=== PATIENT | female | born 1950 | race Caucasian/White ===

== ENCOUNTER → 2018-06-03 | Outpatient (CLI) | payer OTHER ==
[~2018-06-03] MED LIST: DIATRIZOATE MEGL/DIATRIZOA SOD 30 ML BTL PO ONE; IOPAMIDOL 370 MG/ML 200 ML INFUS..BTL INJ ONE; SODIUM CHLORIDE 0.9% 50ML 50 ML ONE
[2018-06-03 14:48] LABS: BLOOD UREA NITROGEN 14 mg/dL (7-26); BUN/CREATININE RATIO 16 (6-25); CREATININE, SERUM 0.85 mg/dL (0.57-1.11); EST GLOMERULAR FILTRATION RATE > 60 ML/MIN (60-)
--- NOTE | 2018-06-03 15:57 | Diagnostic Imaging Report ---
PROCEDURE: CT scan of the chest and abdomen WITH intravenous contrast, using standard protocol. TECHNIQUE: The chest was scanned utilizing a multidetector helical scanner from the lung apex through the level of the iliac crests after the IV administration of 100 cc of Isovue 370 and 200 cc of Gastroview. Coronal and sagittal multiplanar reformations were obtained. DLP: 491.11 mGy-cm COMPARISON: None. INDICATIONS: Esophageal pain FINDINGS: Lines/tubes: Right chest wall port with tip in the SVC. Lungs and Airways: Moderate centrilobular emphysematous changes. Multiple pulmonary nodules, the larger nodules include (on series 4): * Right upper lobe 0.7 cm nodule (image 31) * Right upper lobe 1.2 cm nodule (image 49) * Right upper lobe 0.8 cm nodule (image 69) * Right lower lobe 1 cm nodule (image 80) * Left upper lobe 1.1 cm nodule (image 33) No consolidations. Small amount of debris in the right main stem bronchus. Mild bronchial wall thickening. Pleura: The pleural spaces are clear. Heart and mediastinum: The thyroid gland is normal. No significant mediastinal, hilar or axillary lymphadenopathy is seen. The heart and pericardium are within normal limits. Main pulmonary artery measures 3.3 cm in diameter and is enlarged which can be seen with pulmonary hypertension. Coronary artery and aortic calcifications. Small hiatal hernia. Esophagus is filled with enteric contrast which may represent incomplete passage of contrast into the stomach or reflux. Hepatobiliary: Normal liver contour. Diffuse hypoattenuation of the liver relative to the spleen is suggestive steatosis. No masses. Cholecystectomy. Mild intrahepatic and extrahepatic biliary ductal dilatation likely related to post cholecystectomy reservoir effect. Spleen: No splenomegaly. No masses. Pancreas: No masses or ductal dilatation. Adrenal glands: No adrenal nodules Kidneys: No masses, hydronephrosis, or stones. Left renal 1.5 cm cyst in the inferior pole. Additional tiny low attenuating lesions are too small to characterize but probably cysts. GI tract: No bowel wall thickening or evidence of obstruction. Large amount of stool within the visualized portions of the transverse and ascending colon. Left lower quadrant spigelian hernia versus ostomy which is barely visualized. Lymph nodes: No lymphadenopathy. Vessels: Portal, splenic, and visualized portions of the superior mesenteric veins are patent. Moderate atherosclerotic changes. Retroperitoneum/peritoneum: No free air or free fluid. Bones: Degenerative changes of the thoracic and visualized portions of the lumbar spine. No acute or aggressive osseous lesions. Soft tissues: Incompletely visualized midline laparotomy scar. IMPRESSION: 1. Small hiatal hernia with enteric contrast within the esophagus which may reflect reflux or incomplete passage of contrast into the stomach. Otherwise, no CT findings to explain esophageal pain. 2. Emphysematous changes with small amount of debris in the airways and mild bronchial wall thickening suggestive of mild bronchitis. 3. Multiple pulmonary nodules measuring up to 1.2 cm which may be infectious, inflammatory, or metastatic. Consider followup according to Fleischner Society [address] in 3-6 months. Dictated by: Laz Campo M.D. on 06/03/2018 at 16:01 Electronically approved by: Laz Campo M.D. on 06/03/2018 at 16:01
--- NOTE | 2018-06-03 15:59 | Diagnostic Imaging Report ---
PROCEDURE: CT CHEST AND ABDOMEN WITH CONTRAST TECHNIQUE: The chest and abdomen were scanned utilizing a multidetector helical scanner of the chest to the iliac crests after the IV administration of 100 cc of Isovue 370 and the oral administration of 200 cc of Gastroview. Coronal and sagittal multiplanar reformations were obtained. DLP: 491.11 mGy-cm COMPARISON: None. INDICATIONS: ESOPHAGEAL PAIN, COLASPES PER PATIENT FINDINGS: Please see same day chest CT for full report. IMPRESSION: Please see same day chest CT for full report. Dictated by: Laz Campo M.D. on 06/03/2018 at 16:03 Electronically approved by: Laz Campo M.D. on 06/03/2018 at 16:03
== END ==
LOC: CT 13:39
PROVIDERS: ATTEND Internal Medicine Gastroenterology
DX: R07.9 Chest pain, unspecified (principal); R10.9 Unspecified abdominal pain; R13.10 Dysphagia, unspecified; K44.9 Diaphragmatic hernia without obstruction or gangrene; B37.81 Candidal esophagitis; E66.3 Overweight; Z85.9 Personal history of malignant neoplasm, unspecified; Z71.3 Dietary counseling and surveillance
CPT/HCPCS: 36415; 71260; 74160; 76937; 82565; 84520; Q9967

== ENCOUNTER → 2018-06-22 | Day surgery (SDC) | payer OTHER ==
[2018-06-21 17:57] LABS: BASOPHILS % 0.3 % (0.0-1.0); EOSINOPHILS # (AUTO) 0.2 (0.0-0.4); EOSINOPHILS % 3.5 % (0.0-6.0); HEMATOCRIT 41.2 % (34.2-44.1); HEMOGLOBIN 13.5 g/dL (12.0-16.0); LYMPHOCYTES # (AUTO) 0.7 (1.0-3.2); LYMPHOCYTES % 10.4 % (18.0-39.1); MEAN CORPUSCULAR HEMOGLOBIN 32.1 pg (28-32); MEAN CORPUSCULAR HGB CONC 32.8 g/dL (31-35); MEAN CORPUSCULAR VOLUME 97.9 fL (81-99); MONOCYTES # (AUTO) 0.9 (0.2-0.8); MONOCYTES % 14.3 % (4.4-11.3); NEUTROPHILS # (AUTO) 4.4 (2.1-6.9); NEUTROPHILS % 70.9 % (38.7-80.0); PLATELET COUNT 149 x10e3/uL (140-360); RED BLOOD COUNT 4.21 x10e6/uL (3.6-5.1)
[~2018-06-22] MED LIST changes: +CYMBALTA60 MG PO; -DIATRIZOATE MEGL/DIATRIZOA SOD 30 ML BTL PO ONE; +GABAPENTIN400 MG PO; -IOPAMIDOL 370 MG/ML 200 ML INFUS..BTL INJ ONE; +LIDOCAINE HCL 2% LOCAL INJ 5 ML SDV VIAL INJ ONE; +MS CONTIN15 MG PO; +OXYCODONE HCL20 M1 PO; +PANTOPRAZOLE SO40 MG PO; +PROPOFOL IV EMULSION 10 MG/ML 50 ML VIAL ONE; -SODIUM CHLORIDE 0.9% 50ML 50 ML ONE; +SYMBICORT 16010.2 GM INH; +VENTOLIN HFA18 GM INH; +[UNRECOGNIZED DRUG - OTHER] INH
== END | disposition home or self-care (01) ==
LOC: OR 05:28
PROVIDERS: ATTEND Internal Medicine Gastroenterology
DX: K21.0 Gastro-esophageal reflux disease with esophagitis (principal); K44.9 Diaphragmatic hernia without obstruction or gangrene; R13.10 Dysphagia, unspecified; E66.3 Overweight; Z68.28 Body mass index [BMI] 28.0-28.9, adult; F17.210 Nicotine dependence, cigarettes, uncomplicated; K22.2 Esophageal obstruction; Z01.810 Encounter for preprocedural cardiovascular examination; Z01.812 Encounter for preprocedural laboratory examination
CPT/HCPCS: 36415; 43239; 43249; 85025; 88305; 93005; J2001; 43450

== ENCOUNTER 2019-05-12 05:29 | Inpatient (IN) | payer MEDICARE ==
[2019-05-10 13:15] LABS: BASOPHILS % 0.5 % (0.0-1.0); EOSINOPHILS # (AUTO) 0.2 (0.0-0.4); EOSINOPHILS % 2.8 % (0.0-6.0); HEMATOCRIT 42.8 % (34.2-44.1); HEMOGLOBIN 13.4 g/dL (12.0-16.0); LYMPHOCYTES # (AUTO) 0.6 (1.0-3.2); MEAN CORPUSCULAR HEMOGLOBIN 31.2 pg (28-32); MEAN CORPUSCULAR HGB CONC 31.3 g/dL (31-35); MEAN CORPUSCULAR VOLUME 99.8 fL (81-99); MONOCYTES # (AUTO) 0.5 (0.2-0.8); MONOCYTES % 8.2 % (4.4-11.3); NEUTROPHILS # (AUTO) 4.4 (2.1-6.9); NEUTROPHILS % 78.1 % (38.7-80.0); PLATELET COUNT 221 x10e3/uL (140-360); RED BLOOD COUNT 4.29 x10e6/uL (3.6-5.1); RED CELL DISTRIBUTION WIDTH 14.7 % (11.7-14.4)
[2019-05-10 13:34] LABS: ANION GAP 9.6 mmol/L (8-16); BLOOD UREA NITROGEN 13 mg/dL (7-26); BUN/CREATININE RATIO 16 (6-25); CALCIUM 9.4 mg/dL (8.4-10.2); CARBON DIOXIDE 31 mmol/L (22-29); CHLORIDE 101 mmol/L (98-107); CREATININE, SERUM 0.81 mg/dL (0.57-1.11); EST GLOMERULAR FILTRATION RATE > 60 ML/MIN (60-); GLUCOSE 87 mg/dL (74-118); POTASSIUM 4.6 mmol/L (3.5-5.1); SODIUM 137 mmol/L (136-145)
--- NOTE | 2019-05-10 14:06 | Diagnostic Imaging Report ---
EXAM: CHEST 2 VIEWS, PA and lateral DATE: 05/10/2019 Time stamp on exam: 1:06 PM INDICATION: COPD, preoperative for parastomal hernia repair COMPARISON: None FINDINGS: LINES/TUBES: Right chest wall subclavian approach Port-A-Cath with tip overlying SVC. LUNGS: No consolidations. Prominent central pulmonary vascularity. PLEURA: No effusions or pneumothorax. HEART AND MEDIASTINUM: Normal size and contour. BONES AND SOFT TISSUES: No acute findings. Calcified lymph node in the right axilla. IMPRESSION: Prominent central pulmonary vascularity. Signed by: Dr. Geronimo Ozuna DO on 05/10/2019 2:03 PM
[2019-05-12] VITALS (7 sets, daily range): BP systolic 112–128; BP diastolic 54–67
[~2019-05-12] VITALS: Ht 172.7 cm; Wt 93.0 kg
[~2019-05-12 05:29] MED LIST changes: +IBUPROFEN200 MG PO; -LIDOCAINE HCL 2% LOCAL INJ 5 ML SDV VIAL INJ ONE; -PROPOFOL IV EMULSION 10 MG/ML 50 ML VIAL ONE
--- OUTSIDE RECORDS SUMMARY | 2019-05-12 05:32 | XMS REPORT | Clinical Summary ---
Author Author [facility] [employer] [facility] Address Unknown Phone Unavailable Care Team Providers Care Asphalt Roller Operator Name Role Phone Christi Shirley MD PCP Allergies Comments Active Allergy Reactions Severity Noted Date "lidocaine cream only -burning her skin". Pt reports having lidocaine for iv injection for iv access and "no problems" Lidocaine Other (See 03/12/2017 Comments) Medications End Date Status Medication Sig Dispensed Refills Start Date Active budesonide-formoterol Inhale 2 0 (SYMBICORT) 160-4.5 puffs 2 (two) mcg/actuation inhaler times a day. Active ipratropium-albuterol Inhale 2 0 (COMBIVENT RESPIMAT) puffs 2 (two) 20-100 mcg/actuation mist times a day. inhaler Active oxyCODone (ROXICODONE) 15 Take 15 mg by 0 MG immediate release mouth every 4 tablet (four) hours as needed for moderate pain. Active FLUoxetine (PROzac) 60 MG Take 60 mg by 0 tablet mouth nightly. Active pantoprazole (PROTONIX) Take 40 mg by 0 40 MG EC tablet mouth 2 (two) times a day. Active albuterol (ACCUNEB) 2.5 Take 2.5 mg 0 mg /3 mL (0.083 %) by nebulizer solution nebulization every 8 (eight) hours. Active morPHINE (MSIR) 15 MG Take 15 mg by 0 tablet mouth every 8 (eight) hours as needed for severe pain. Active DULoxetine (CYMBALTA) 60 TK 1 C PO QD 1 MG capsule 7 Active gabapentin (NEURONTIN) TK 1 T PO TID 1 600 mg tablet 7 Active Problems Problem Noted Date Acute left-sided low back pain with left-sided sciatica 10/04/2017 Macrocytic anemia 10/04/2017 Lumbar stenosis 10/04/2017 Bilious vomiting with nausea 06/02/2017 Overview: Added automatically from request for surgery [id number] Esophagitis 05/16/2017 Drug-induced constipation 05/12/2017 Intractable nausea and vomiting 05/11/2017 Gastroenteritis 05/11/2017 Rectal cancer 03/17/2017 Intractable pain 03/12/2017 Family History Medical History Relation Name Comments Diabetes Mother Relation Name Status Comments Mother Social History Date Tobacco Use Types Packs/Day Years Used Quit: 09/29/2017 Former Smoker Cigarettes 1 48 Smokeless Tobacco: Never Used Alcohol Use Drinks/Week oz/Week Comments No Sex Assigned at Date Recorded Not on file Industry Job Start Date Occupation Not on file Not on file Not on file Travel End Travel History Travel Start No recent travel history available. Last Filed Vital Signs Not on file Plan of Treatment Health Maintenance Due Date Last Done Comments BREAST CANCER SCREENING 2000 COLONOSCOPY SCREENING 2000 SHINGLES VACCINES (#1) 2000 65+ PNEUMOCOCCAL VACCINE 2015 (1 of 2 - PCV13) INFLUENZA VACCINE 06/29/2019 Implants Device Identifier Shelf Expiration Date Model / Serial / Lot Implanted Type Area Manufactur er 08/29/2022 APS 5616 / / [id number] Allograft Amniofix Membrane Human N/A: N/A MIMEDX Amniotic 6 X 16cm - [id number] Tissue [employer] Implanted: Qty: 1 on 11/10/2017 by Reta De La O MD 08/29/2022 APS 5616 / / [id number] Allograft Amniofix Membrane Human N/A: N/A MIMEDX Amniotic 6 X 16cm - [id number] Tissue [employer] Implanted: Qty: 1 on 11/10/2017 by Reta De La O MD [id number] / / Meron Romano [id number] Surgical N/A: N/A BSC 15-16.5-18mm Cre - [id number] Implants; ENDOSCOPY Implanted: 06/02/2017 (Quantity not Expanders; on file) Extenders; Surgical Wires [id number] / / Dilator Juan Antonio Espgl Pylrc Clnc Wire Surgical N/A: N/A BSC Guided [id number] 15-18mm - Implants; ENDOSCOPY [id number] Expanders; Implanted: 06/02/2017 (Quantity not Extenders; on file) Surgical Wires [id number] / / Drain Wnd Chnl 19fr 4in Rnd Hbls Surgical N/A: N/A TUAN Fl-Flut W/ 4in Trocar - [id number] Implants; AND Implanted: Qty: 1 on 11/10/2017 by Expanders; Reta Chandler MD Extenders; HEALTH Surgical CARE Wires 02/27/2020 [id number] / [id number] Pack Procedure Seprafilm 3x5in - Surgical N/A: N/A GENZYME [id number] - [id number] Implants; BIOSURGERY Implanted: Qty: 1 on 11/10/2017 by [employer]anders; Reta Graham MD Extenders; Surgical Wires Results Not on fileafter 05/11/2018 Insurance Type Payer Benefit Subscriber ID Effective Phone Address Plan / Dates Group HMO [employer] TEXAN[employer]US xxxxxxxxx 2013-P [place] Advance Directives Patient has advance care planning documents, and code status on file. For more i nformation, please contact: Norman Giron [address] [place] [address] Date Inactivated Comments Code Status Date Activated 10/06/2017 3:36 PM Full Code 10/04/2017 11:56 AM Code Status decision reached by: Patient
[2019-05-12] MEDS ORDERED: CEFAZOLIN SOD 2 GM/D5W 50ML 50 ML IV ONE (05:41)
[2019-05-12] MEDS ORDERED: BUPIVACAINE HCL 0.5% INJ 30 ML VIAL INJ ONE (06:47)
[2019-05-12] MEDS ORDERED: BACITRACIN 50,000 UNIT VIAL ONE (06:47)
[2019-05-12] MEDS ORDERED: ONDANSETRON HCL INJ 2MG/ML 2ML 2 MG/ML VIAL IV PRN (08:30)
[2019-05-12] MEDS ORDERED: NALOXONE HCL INJ 0.4 MG/ML AMP IV PRN (08:30)
[2019-05-12] MEDS ORDERED: KETOROLAC TROMETHAMINE 30 MG/ML VIAL IV PRN (08:30)
[2019-05-12] MEDS ORDERED: ACETAMINOPHEN 1000 MG/100 ML IV PRN (08:30)
[2019-05-12] MEDS ORDERED: MORPHINE SULFATE INJ 4 MG/ML INJ 1ML ONE (08:48)
[2019-05-12] MEDS: MORPHINE SULFATE 1 MG/ML 30ML PCA IV PRN ×2 (08:49→14:13)
--- NOTE | 2019-05-12 08:57 | Operative Report ---
DATE OF PROCEDURE: 05/12/2019 SURGEON: Bobby Desir MD PREOPERATIVE DIAGNOSIS: Parastomal hernia. POSTOPERATIVE DIAGNOSIS: Parastomal hernia. PROCEDURES: Repair of parastomal hernia with mesh. COLD PATCHER: None. ANESTHESIA: General. INDICATIONS AND FINDINGS: The patient is a 68-year-old female, who has a colostomy after treatment for anal cancer and developed a bulge around the surgery based on hernia, which was superior to the colostomy stoma with a defect that was approximately 3 x 4 cm. TECHNIQUE: After adequate general endotracheal anesthesia, the patient in supine position. The abdomen was prepped and draped in sterile fashion with Betadine solution. An Ioban drape was used to cover the stoma. The incision was made above the area of the stoma at the upper edge where the hernia was, carried down through subcutaneous tissue. The hernia sac was identified, dissected free of the surrounding tissues down to the fascia and freed from the fascia throughout the circumference of the hernia defect and the colon could be seen were traversed the abdominal wall to become a stoma. The hernia sac was opened. There were some adhesions to the hernia sac, which were lysed involving the omentum. The omentum and small bowel returned to the peritoneal cavity. The fascial defect was completely delineated. A separate mesh was soaked in antibiotic solution and fascia propria was then placed beneath the fascia, so it encompassed the area. The defect was sutured to the undersurface of fascia from approximately 2.5 cm from the edge of the defect using a running horizontal mattress suture of 0 prolene. Care was taken not to entrap the bowel with the mesh in place. The fascia was then closed around the colon over the mesh with a running suture of 0 prolene. Hemostasis was seen to be adequate and was irrigated with saline, inspected for hemostasis, which was seen to be adequate. The wound was then infiltrated with 0.5% Marcaine. Subcutaneous tissue was closed with running suture of 3-0 Vicryl. Skin was closed with a running subcuticular suture of 4-0 Vicryl and Dermabond was applied to the wound. The patient tolerated the procedure well. Estimated blood loss was 10 mL. There were no complications. All counts were correct and the patient was taken to the recovery room in satisfactory condition. MD BETH Ruiz/HAO /[id number] cc: Claudia Hernandez MD
--- OUTSIDE RECORDS SUMMARY | 2019-05-12 09:10 | XMS REPORT | Clinical Summary ---
Author Author [facility] Address Unknown Phone Unavailable Care Team Providers Care Dj Instructor Name Role Phone Christi Shirley MD PCP [...] Overview: Added automatically from request for surgery [id number] Esophagitis 05/16/2017 Drug-induced constipation 05/12/2017 Intractable nausea [...] Manufactur er 08/29/2022 APS 5616 / / [id number] Allograft Amniofix Membrane Human N/A: N/A MIMEDX Amniotic 6 X 16cm - [id number] Tissue [employer] Implanted: Qty: 1 on 11/10/2017 by Reta De La O MD 08/29/2022 APS 5616 / / [id number] Allograft Amniofix Membrane Human N/A: N/A MIMEDX Amniotic 6 X 16cm - [id number] Tissue [employer] Implanted: Qty: 1 on 11/10/2017 by Reta De La O MD [id number] / / Meron Romano [id number] Surgical N/A: N/A BSC 15-16.5-18mm Cre - [id number] Implants; ENDOSCOPY Implanted: 06/02/2017 (Quantity not Expanders; on file) Extenders; Surgical Wires [id number] / / Dilator Juan Antonio Espgl Pylrc Clnc Wire Surgical N/A: N/A BSC Guided [id number] 15-18mm - Implants; ENDOSCOPY [id number] Expanders; Implanted: 06/02/2017 (Quantity not Extenders; on file) Surgical Wires 2231 / / Drain Wnd Chnl 19fr 4in Rnd Hbls Surgical N/A: N/A TUAN Fl-Flut W/ 4in Trocar - [id number] Implants; AND Implanted: Qty: 1 on 11/10/2017 by Expanders; Reta Chandler MD Extenders; HEALTH Surgical CARE Wires 02/27/2020 [id number] / [id number] Pack Procedure Seprafilm 3x5in - Surgical N/A: N/A GENZYME [id number] - [id number] Implants; BIOSURGERY Implanted: Qty: 1 on 11/10/2017 by Expanders; Reta Graham MD Extenders; Surgical Wires Results Not on fileafter 05/11/2018 Insurance Type Payer Benefit Subscriber ID Effective Phone Address Plan / Dates Group HMO [employer] TEXANPLUS xxxxxxxxx 2013-P [place] Advance Directives Patient has advance care planning documents, and code status on file. For more i nformation, please contact: Norman Giron [address] [place] [address] Date Inactivated Comments Code Status Date Activated 10/06/2017 3:36 PM Full Code 10/04/2017 11:56 AM Code Status decision reached by: Patient
--- NOTE | 2019-05-12 09:30 | NUR ---
RECEIVED PATIENT FROM PACU. PATIENT A/O X3, EVEN RESPIRATIONS ON 2LNC UNLABORED. BOWEL SOUNDS ACTIVE, NO EDEMA. COLOSTOMY IN PLACE, EMPTY AT THIS TIME. SCD'S BILATERALLY. BILLING ADJUDICATOR MORPHINE PUMP AT BEDSIDE. RIGHT HAND 20 GAUGE IV WITH FLUIDS @ 100 CC/HR. EDUCATED PATIENT TO ROOM AND CALL LIGHT. VITAL SIGNS STABLE. CALL LIGHT IN REACH, BED LOW, WHEELS LOCKED. WILL CONTINUE TO MONITOR.
[2019-05-12] MEDS ORDERED: IBUPROFEN 600 MG TAB PO PRN (10:30)
[2019-05-12] MEDS: DULOXETINE HCL 30 MG DELAYED RELEASE PO SCH (11:29)
[2019-05-12] MEDS: PANTOPRAZOLE SOD 40 MG TABEC PO SCH (11:29)
[2019-05-12] MEDS: CEFAZOLIN SOD 1 GM/NS 50ML 50 ML IV SCH ×3 (11:29→23:31)
[2019-05-12] MEDS: GABAPENTIN 400 MG CAP PO SCH ×2 (13:48→22:00)
[2019-05-12] MEDS: SODIUM CHLORIDE 0.9% 1000ML 1,000 ML IV SCH ×2 (13:48→18:24)
[2019-05-12] MEDS ORDERED: FENTANYL CITRATE/PF 100MCG/2 ML INJ ONE (14:16)
[2019-05-12] MEDS ORDERED: MIDAZOLAM HCL 2 MG/2 ML VIAL ONE (14:16)
[2019-05-12] MEDS ORDERED: GLYCOPYRROLATE INJ 1MG/ 5 ML SYR ONE (16:36)
[2019-05-12] MEDS ORDERED: LIDOCAINE HCL 2% LOCAL INJ 5 ML SDV VIAL INJ ONE (16:36)
[2019-05-12] MEDS ORDERED: ONDANSETRON HCL INJ 2MG/ML 2ML 2 MG/ML VIAL ONE (16:36)
[2019-05-12] MEDS ORDERED: NEOSTIGMINE 5 MG/5ML SYR ONE (16:36)
[2019-05-12] MEDS ORDERED: DEXAMETHASONE SOD PHOS INJ 4 MG/ML VIAL ONE (16:36)
[2019-05-12] MEDS ORDERED: PROPOFOL IV EMULSION 10 MG/ML 20 ML VIAL ONE (16:36)
[2019-05-12] MEDS ORDERED: KETOROLAC TROMETHAMINE 30 MG/ML VIAL ONE (16:36)
[2019-05-12] MEDS ORDERED: SEVOFLURANE INHAL SOLN 250 ML PEN BTL ONE (16:36)
--- NOTE | 2019-05-12 17:00 | NUR ---
PATIENT HAS VOIDED SINCE SURGERY.
--- NOTE | 2019-05-12 19:20 | NUR ---
PT RESTING IN BED WITH NO S/S OF DISTRESS.RESPIRATIONS EVEN/NON LABORED.PT ON MORPHINE BACKHAUL DRIVER PUMP.IV TO RIGHT HAND INTACT AND PATENT WITH NS RUNNING AT 100 ML/HR.INSTRUCTED PT TO USE THE INCENTIVE SPIROMETER,PT VERBALIZED UNDERSTANDING.INSTRUCTED PT TO CALL FOR ASSISTANCE NEEDED BY USING CALL LIGHT.BED IN LOWEST/LOCKED POSITION.BED ALARM ON.CALL LIGHT WITHIN EASY REACH.
[2019-05-12] MEDS: BUDESONIDE/FORMOTEROL 160/4.5MCG INHALER INH SCH (19:30)
[2019-05-12] MEDS: ALBUTEROL SULFATE HFA 8GM INHALATION AEROSOL INH SCH (19:30)
--- NOTE | 2019-05-12 23:59 | NUR ---
PT NOTED TO BE SEDATED,DIFFICULT TO AROUSE WITH VERBAL STIMULI.V/S 109/53, P 93, R 14,SPO2 89-93% ON 3LPM,NARCAN IV GIVEN PER JAN.AND STOPPED THE MORPHINE MANAGER FOOD PUMP.CHARGE NURSE NOTIFIED.
[2019-05-13] VITALS (9 sets, daily range): BP systolic 100–140; BP diastolic 54–63
--- NOTE | 2019-05-13 00:06 | NUR ---
CALLED ANSWERING SERVICE FOR DR FORTUNE SPOKE WITH BENJAMIN,DR FORTUNE PAGED AT THIS TIME.
--- NOTE | 2019-05-13 00:23 | NUR ---
DR FORTUNE CALLED BACK NOTIFIED THAT PT IS SEDATED AND NARCAN WAS ADMINISTERED PER JAN.DR FORTUNE ORDERED TO DC THE MORPHINE COPY HOLDER.ALSO NOTIFIED DR FORTUNE ABOUT PT SPO2 LEVEL RANGING 89-93 ON 3LPM,AND PT NOTED WITH WHEEZING.N/O'S RECEIVED.
[2019-05-13] MEDS: ALBUTEROL SULFATE HFA 8GM INHALATION AEROSOL INH SCH ×2 (00:25→08:00)
[2019-05-13] MEDS ORDERED: HYDROCODONE/APAP 5MG-325MG TAB PO PRN (00:30)
[2019-05-13] MEDS: BUDESONIDE/FORMOTEROL 160/4.5MCG INHALER INH SCH ×4 (00:35→18:35)
--- NOTE | 2019-05-13 00:40 | NUR ---
TELEMETRY BOX # 5 PLACED ON PT.PT RUNNING SINUS RHYTHM.
--- NOTE | 2019-05-13 00:45 | NUR ---
WASTED THE MORPHINE 4.1 ML LEFT IN RESIDENCE DIRECTOR WITH Mikey SANCHEZ RN.
--- NOTE | 2019-05-13 01:50 | NUR ---
PT NOTED TO BE MORE AWAKE AND ALERT NOW,ANSWERS QUESTIONS READILY.V/S 111/60,P 82, R 17,SPO2 97%,T 99.0 . ASSISTED PT TO USE THE BEDPAN,PT VOIDED IN THE BEDPAN.TELEMETRY BOX ON.BED IN LOWEST/LOCKED POSITION.BED ALARM ON.WILL CONTINUE TO MONITOR PT CLOSELY.
--- NOTE | 2019-05-13 03:48 | NUR ---
PT RESTING IN BED WITH NO S/S OF DISTRESS.PT ALERT AWAKE AND ORIENTED X 3.PT REQUESTED TO BE PUT ON BEDPAN,ASSISTED PT ON BEDPAN,PT VOIDED.BED IN LOWEST/LOCKED POSITION.BED ALARM ON.CALL LIGHT WITHIN EASY REACH.WILL CONTINUE TO MONITOR CLOSELY.
[2019-05-13 05:32] LABS: BASOPHILS % 0.2 % (0.0-1.0); EOSINOPHILS # (AUTO) 0.2 (0.0-0.4); EOSINOPHILS % 2.4 % (0.0-6.0); HEMATOCRIT 40.4 % (34.2-44.1); HEMOGLOBIN 12.8 g/dL (12.0-16.0); LYMPHOCYTES # (AUTO) 0.3 (1.0-3.2); LYMPHOCYTES % 3.2 % (18.0-39.1); MEAN CORPUSCULAR HEMOGLOBIN 31.2 pg (28-32); MEAN CORPUSCULAR HGB CONC 31.7 g/dL (31-35); MEAN CORPUSCULAR VOLUME 98.5 fL (81-99); MONOCYTES # (AUTO) 0.5 (0.2-0.8); MONOCYTES % 5.9 % (4.4-11.3); NEUTROPHILS # (AUTO) 7.1 (2.1-6.9); NEUTROPHILS % 88.2 % (38.7-80.0); PLATELET COUNT 196 x10e3/uL (140-360); RED CELL DISTRIBUTION WIDTH 14.6 % (11.7-14.4)
[2019-05-13 05:46] LABS: ANION GAP 11.4 mmol/L (8-16); BLOOD UREA NITROGEN 11 mg/dL (7-26); BUN/CREATININE RATIO 12 (6-25); CALCIUM 8.9 mg/dL (8.4-10.2); CARBON DIOXIDE 27 mmol/L (22-29); CHLORIDE 105 mmol/L (98-107); CREATININE, SERUM 0.91 mg/dL (0.57-1.11); EST GLOMERULAR FILTRATION RATE > 60 ML/MIN (60-); GLUCOSE 117 mg/dL (74-118); POTASSIUM 4.4 mmol/L (3.5-5.1); SODIUM 139 mmol/L (136-145)
[2019-05-13] MEDS: GABAPENTIN 400 MG CAP PO SCH ×3 (05:57→22:00)
[2019-05-13] MEDS: PANTOPRAZOLE SOD 40 MG TABEC PO SCH (07:05)
--- NOTE | 2019-05-13 07:11 | NUR ---
REPORT GIVEN TO ONCOMING NURSE,WALKING ROUNDS MADE.PT RESTING IN BED WITH NO S/S OF DISTRESS.
[2019-05-13] MEDS ORDERED: ALBUTEROL/IPRATROPIUM 3 ML NEB NEB PRN (08:30)
[2019-05-13 08:49] LABS: ANISOCYTOSIS SLIGHT; EOSINOPHILS % (MANUAL) 4 % (0-7); LYMPHOCYTES % (MANUAL) 2 % (19-48); MONOCYTES % (MANUAL) 2 % (3.4-9.0); NEUTROPHILS % (MANUAL) 91 % (40-74); PLATELET ESTIMATE ADEQUATE; PLATELET MORPHOLOGY COMMENT NORMAL; RBC MORPHOLOGY COMMENT ABNORMAL
[2019-05-13] MEDS: DULOXETINE HCL 30 MG DELAYED RELEASE PO SCH (09:00)
--- NOTE | 2019-05-13 09:37 | Consultation ---
DATE OF CONSULTATION: PRIMARY CARE PHYSICIAN: Dr. Venu Shirley. REASON FOR CONSULTATION: Medical management. HISTORY OF PRESENT ILLNESS: The patient is a pleasant [id number]-female, status post abdominal hernia repair. The patient is otherwise stable. She is on clear liquid diet at this time. The patient has a parastomal hernia, status post repair of the hernia with mesh by Dr. Bobby Desir. The patient is stable at this time. PAST MEDICAL HISTORY: Hypertension, obesity, GERD, major depression, anxiety disorder, osteoarthritis. PAST SURGICAL HISTORY: Colon surgery, right knee surgery, laparoscopic cholecystectomy and partial hysterectomy. SOCIAL HISTORY: The patient does not smoke or use alcohol. No recreational drugs. ALLERGIES: NO KNOWN ALLERGIES. HOME MEDICATIONS: Albuterol, Symbicort, Cymbalta, gabapentin, ibuprofen, oxycodone, Protonix, Anoro. PHYSICAL EXAMINATION: VITAL SIGNS: Temperature is 98, blood pressure 124/58, pulse rate is 91, respirations 18. GENERAL: The patient is not in acute distress. HEENT: Normocephalic, atraumatic. Sclerae anicteric. NECK: Supple grossly. PULMONARY: Diminished breath sounds without any wheezing. CARDIOVASCULAR: Regular rate and rhythm. ABDOMEN: Status post parastomal hernia repair. EXTREMITIES: No cyanosis or edema. NEUROLOGIC: No gross focal deficit. LABORATORY DATA: Sodium is 139, potassium 4.4, chloride 105, bicarb 27, BUN 11, creatinine 0.9, glucose 117. WBC is 8.1, hemoglobin 12.8, hematocrit 40.4, platelets 196. IMPRESSION: 1. Status post parastomal hernia repair with mesh. 2. Multiple chronic baseline problems. PLAN: Continue with home medication, nebulizer p.r.n. Discontinue IV fluids. Repeat lab work. PT, OT. Increase activity. MD YAYA Guerra/HAO /[id number]
[2019-05-13] MEDS: OXYCODONE HCL IR 5 MG TAB PO PRN ×2 (10:31→20:57)
[2019-05-13] MEDS ORDERED: SODIUM CHLORIDE 0.9% 250ML 250 ML ONE (10:32)
[2019-05-13] MEDS: ALBUTEROL/IPRATROPIUM 3 ML NEB NEB SCH ×2 (11:36→18:38)
[2019-05-13] MEDS: KETOROLAC TROMETHAMINE 30 MG/ML VIAL IV PRN (14:38)
--- NOTE | 2019-05-13 19:10 | NUR ---
walking rounds completed with drum drier operator nurse, patient aware of change and in no distress. call yuen within reach and bed in lowest position.
--- NOTE | 2019-05-13 20:57 | NUR ---
ASSISTED PT TO BATHROOM,PT AMBULATED WITH STANDBY ASSISTANCE.ASSISTED PT BACK TO BED.PT C/O PAIN TO ABDOMEN, MEDICATED PER JAN.BED IN LOWEST/LOCKED POSITION.BED ALARM ACTIVATED.CALL LIGHT WITHIN EASY REACH.
[2019-05-14] MEDS: ALBUTEROL/IPRATROPIUM 3 ML NEB NEB SCH ×2 (00:25→07:15)
[2019-05-14] MEDS: KETOROLAC TROMETHAMINE 30 MG/ML VIAL IV PRN (03:42)
[2019-05-14 04:46] VITALS: BP 143/63
[2019-05-14] MEDS: GABAPENTIN 400 MG CAP PO SCH (05:49)
--- NOTE | 2019-05-14 06:50 | NUR ---
REPORT GIVEN TO ONCOMING NURSE,WALKING ROUNDS DONE.PT RESTING IN BED WITH NO S/S OF DISTRESS.
[2019-05-14 08:00] VITALS: BP 145/66
[2019-05-14 08:05] VITALS: BP 145/66
[2019-05-14] MEDS: DULOXETINE HCL 30 MG DELAYED RELEASE PO SCH (08:10)
[2019-05-14] MEDS: PANTOPRAZOLE SOD 40 MG TABEC PO SCH (08:10)
[2019-05-14] MEDS ORDERED: ceftin PO (10:11)
[2019-05-14] MEDS ORDERED: TYLENOL WITH C1 EACH PO (10:12)
[2019-05-14 11:00] VITALS: BP 146/64
--- NOTE | 2019-05-14 11:45 | NUR ---
patient alert and oriented with family at bedside. discharge instructions given at this time, patient verbalized understanding. IV discontinued, catheter in tact and small dressing applied. patient to be wheeled out to personal auto for family to drive home.
== END 2019-05-14 11:50 | disposition home or self-care (01) | DRG 355 ==
LOC: OR 05:29 → PACU V 08:46 → MED/SURG 09:34
PROVIDERS: ADMIT Surgery; ATTEND Surgery
PROC: 0WUF0JZ Supplement Abdominal Wall with Synthetic Substitute, Open Approach (ICD-10-PCS; principal; 2019-05-12 07:30)
DX: K43.5 Parastomal hernia without obstruction or gangrene (principal); I10 Essential (primary) hypertension; E66.9 Obesity, unspecified; Z68.31 Body mass index [BMI] 31.0-31.9, adult; K21.9 Gastro-esophageal reflux disease without esophagitis; F32.9 Major depressive disorder, single episode, unspecified; F41.9 Anxiety disorder, unspecified; F17.200 Nicotine dependence, unspecified, uncomplicated; M19.90 Unspecified osteoarthritis, unspecified site; Z85.048 Personal history of other malignant neoplasm of rectum, rectosigmoid junction, and anus
CPT/HCPCS: 36415; 71046; 80048; 85025; 88302; 93005; 94640; 94664; C1781; J0690; J1100; J1885; J2001; J2250; J2270; J2310; J2405; J7030; J7050